=== PATIENT | female | born 2000 | race Caucasian/White ===

== ENCOUNTER 2021-06-29 00:43 | Emergency (ER) | payer BC ==
--- NOTE | 2021-06-29 02:17 | NUR ---
CALLED TO TRIAGE NOT IN WATING ROOM
--- NOTE | 2021-06-29 02:30 | NUR ---
PT NOT IN WAITING ROOM.
== END 2021-06-29 05:38 | disposition left against medical advice (07) ==
LOC: ER 00:50
DX: Z53.21 Procedure and treatment not carried out due to patient leaving prior to being seen by health care provider (principal)